=== PATIENT | female | born 1930 | race Caucasian/White ===

== ENCOUNTER 2020-09-08 22:10 | Inpatient (IN) | payer MEDICARE ==
[~2020-09-08] VITALS: Ht 165.1 cm; Wt 88.9 kg
[2020-09-08 22:50] LABS: CLARITY,URINE CLOUDY (CLEAR); COLOR,URINE YELLOW (YELLOW); LEUKOCYTE ESTERASE ,URINE TRACE (NEGATIVE); NITRITE,URINE NEGATIVE (NEGATIVE)
[2020-09-08 22:51] LABS: KETONES,URINE NEGATIVE (NEGATIVE); PROTEIN,URINE DIPSTICK TRACE (NEGATIVE); URINE UROBILINOGEN 0.2 mg/dL (0.2 - 1)
[2020-09-08] MEDS ORDERED: SODIUM CHLORIDE 0.9% 1000ML 1,000 ML IV ONE (23:00)
[2020-09-08] MEDS ORDERED: CEFTRIAXONE 1 GM VIAL IM ONE (23:00)
[2020-09-08 23:04] LABS: BASOPHILS % 0.4 % (0.0-1.0); EOSINOPHILS % 0.2 % (0.0-6.0); HEMATOCRIT 29.7 % (34.2-44.1); HEMOGLOBIN 9.5 g/dL (12.0-16.0); LYMPHOCYTES # (AUTO) 2.3 (1.0-3.2); LYMPHOCYTES % 21.9 % (18.0-39.1); MEAN CORPUSCULAR HEMOGLOBIN 30.9 pg (28-32); MEAN CORPUSCULAR VOLUME 96.7 fL (81-99); MONOCYTES # (AUTO) 0.9 (0.2-0.8); MONOCYTES % 8.2 % (4.4-11.3); NEUTROPHILS # (AUTO) 7.4 (2.1-6.9); NEUTROPHILS % 68.8 % (38.7-80.0); PLATELET COUNT 527 x10e3/uL (140-360); RED BLOOD COUNT 3.07 x10e6/uL (3.6-5.1); RED CELL DISTRIBUTION WIDTH 14.3 % (11.7-14.4)
[2020-09-08 23:09] LABS: EPITHELIAL CELLS,URINE FEW /LPF; RBC,URINE >50 /HPF (0-5); TRANSITIONAL EPI CELLS,URINE FEW; WBC,URINE (MAN) 21-50 /HPF (0-5)
[2020-09-08 23:10] LABS: BACTERIA,URINE MANY /HPF
[2020-09-08] MEDS ORDERED: SODIUM CHLORIDE 0.9% 50ML 50 ML ONE (23:10)
[2020-09-08 23:25] LABS: ALBUMIN 3.1 g/dL (3.5-5.0); ALBUMIN/GLOBULIN RATIO 0.9 (0.8-2.0); ANION GAP 15.2 mmol/L (8-16); CALCIUM 8.2 mg/dL (8.4-10.2); CREATININE, SERUM 1.98 mg/dL (0.57-1.11); POTASSIUM 4.2 mmol/L (3.5-5.1)
[2020-09-09] VITALS (16 sets, daily range): BP systolic 89–128; BP diastolic 34–87
[2020-09-09] MEDS ORDERED: SODIUM CHLORIDE 0.9% 1000ML 1,000 ML IV ONE
[2020-09-09] MEDS ORDERED: ELIQUIS2.5 MG PO (01:39)
[2020-09-09] MEDS ORDERED: LEVETIRACETAM500 MG PO (01:39)
[2020-09-09] MEDS ORDERED: TYLENOL325 MG PO ×2 (01:39→01:45)
[2020-09-09] MEDS ORDERED: FUROSEMIDE20 MG PO (01:39)
[2020-09-09] MEDS ORDERED: VIMPAT50 MG PO (01:39)
[2020-09-09] MEDS ORDERED: SENNA LAX8.6 MG PO (01:39)
[2020-09-09] MEDS ORDERED: NIFEDIPINE ER30 M1 PO (01:39)
[2020-09-09] MEDS ORDERED: MIRALAX17 GM PO (01:39)
[2020-09-09] MEDS ORDERED: SIMVASTATIN20 MG PO (01:45)
[2020-09-09] MEDS ORDERED: OMEPRAZOLE40 MG PO (01:45)
[2020-09-09] MEDS ORDERED: [UNRECOGNIZED DRUG - OTHER] PO (01:45)
[2020-09-09] MEDS ORDERED: ASPIRIN81 MG PO (01:45)
[2020-09-09] MEDS ORDERED: WEEKLY-D1250 MCG PO (01:45)
[2020-09-09] MEDS ORDERED: LOSARTAN POTAS100 MG PO (01:45)
[2020-09-09] MEDS ORDERED: TRICOR145 MG PO (01:45)
[2020-09-09] MEDS ORDERED: SODIUM CHLORIDE 0.9% 1000ML 1,000 ML IV SCH (02:30)
[2020-09-09] MEDS ORDERED: FENTANYL CITRATE/PF 100MCG/2 ML INJ IV ONE (02:45)
[2020-09-09 03:47] LABS: BASOPHILS % 0.2 % (0.0-1.0); EOSINOPHILS % 0.2 % (0.0-6.0); HEMATOCRIT 25.6 % (34.2-44.1); HEMOGLOBIN 8.1 g/dL (12.0-16.0); LYMPHOCYTES % 23.6 % (18.0-39.1); MEAN CORPUSCULAR HEMOGLOBIN 30.9 pg (28-32); MEAN CORPUSCULAR HGB CONC 31.6 g/dL (31-35); MEAN CORPUSCULAR VOLUME 97.7 fL (81-99); MONOCYTES # (AUTO) 0.7 (0.2-0.8); MONOCYTES % 8.5 % (4.4-11.3); NEUTROPHILS # (AUTO) 5.6 (2.1-6.9); RED BLOOD COUNT 2.62 x10e6/uL (3.6-5.1); RED CELL DISTRIBUTION WIDTH 14.4 % (11.7-14.4)
[2020-09-09 03:48] LABS: PLATELET COUNT 440 x10e3/uL (140-360)
[2020-09-09 03:58] LABS: MAGNESIUM 1.7 MG/DL (1.3-2.1); PHOSPHORUS 3.7 MG/DL (2.3-4.7)
[2020-09-09 04:04] LABS: ALBUMIN 2.5 g/dL (3.5-5.0); ALBUMIN/GLOBULIN RATIO 0.9 (0.8-2.0); ANION GAP 12.9 mmol/L (8-16); CALCIUM 7.2 mg/dL (8.4-10.2); CREATININE, SERUM 1.61 mg/dL (0.57-1.11); POTASSIUM 3.9 mmol/L (3.5-5.1)
[2020-09-09] MEDS ORDERED: PIPERACILLIN/TAZOBACTAM 3.375 GM in SODIUM CHLORIDE 0.9% 50ML 50 ML IV SCH (08:45)
[2020-09-09] MEDS ORDERED: CEFTRIAXONE 1 GM in SODIUM CHLORIDE 0.9% 50ML 50 ML IV SCH (09:00)
[2020-09-09] MEDS: LACTATED RINGER'S 1,000 ML INJ SCH (12:36)
[2020-09-09] MEDS: Pantoprazole IV 40 MG in SODIUM CHLORIDE 0.9% 50ML 50 ML IV SCH ×3 (12:43→21:19)
[2020-09-09] MEDS ORDERED: Vancomycin IV 1 GM in SODIUM CHLORIDE 0.9% 250ML 250 ML IV ONE (14:45)
[2020-09-09] MEDS: LEVETIRACETAM 500MG/5ML VIAL 1,000 MG in SODIUM CHLORIDE 0.9% 100 ML 100 ML IV SCH (14:48)
[2020-09-09] MEDS ORDERED: LEVETIRACETAM 500 MG TAB PO SCH (17:00)
[2020-09-09] MEDS: PIPERACILLIN/TAZOBACTAM 3.375 GM in SODIUM CHLORIDE 0.9% 50ML 50 ML IV SCH (18:47)
[2020-09-09] MEDS ORDERED: SIMVASTATIN 20 MG TAB PO SCH (21:00)
[2020-09-10] VITALS (21 sets, daily range): BP systolic 91–145; BP diastolic 38–98
[2020-09-10 00:57] LABS: FERRITIN 97.93 ng/mL (4.63-204.00)
[2020-09-10] MEDS: LACTATED RINGER'S 1,000 ML INJ SCH ×3 (01:48→12:34)
[2020-09-10] MEDS: Pantoprazole IV 40 MG in SODIUM CHLORIDE 0.9% 50ML 50 ML IV SCH ×5 (02:19→20:43)
[2020-09-10] MEDS: LEVETIRACETAM 500MG/5ML VIAL 1,000 MG in SODIUM CHLORIDE 0.9% 100 ML 100 ML IV SCH ×2 (02:19→12:34)
[2020-09-10] MEDS: PIPERACILLIN/TAZOBACTAM 3.375 GM in SODIUM CHLORIDE 0.9% 50ML 50 ML IV SCH ×3 (02:50→17:02)
[2020-09-10 05:25] LABS: BASOPHILS % 0.7 % (0.0-1.0); EOSINOPHILS # (AUTO) 0.2 (0.0-0.4); EOSINOPHILS % 3.6 % (0.0-6.0); HEMOGLOBIN 7.1 g/dL (12.0-16.0); LYMPHOCYTES # (AUTO) 1.7 (1.0-3.2); LYMPHOCYTES % 31.6 % (18.0-39.1); MEAN CORPUSCULAR HEMOGLOBIN 30.6 pg (28-32); MEAN CORPUSCULAR VOLUME 98.7 fL (81-99); MONOCYTES # (AUTO) 0.5 (0.2-0.8); MONOCYTES % 8.2 % (4.4-11.3); NEUTROPHILS # (AUTO) 3.1 (2.1-6.9); NEUTROPHILS % 55.7 % (38.7-80.0); PLATELET COUNT 389 x10e3/uL (140-360); RED BLOOD COUNT 2.32 x10e6/uL (3.6-5.1); RED CELL DISTRIBUTION WIDTH 14.5 % (11.7-14.4)
[2020-09-10 05:31] LABS: INR 1.22; PROTHROMBIN TIME 16.1 seconds (11.9-14.5)
[2020-09-10 05:32] LABS: PARTIAL THROMBOPLASTIN TIME 35.3 seconds (23.8-35.5)
[2020-09-10 05:33] LABS: HEMATOCRIT 22.9 % (34.2-44.1)
[2020-09-10 05:53] LABS: ALBUMIN 2.1 g/dL (3.5-5.0); ALBUMIN/GLOBULIN RATIO 0.8 (0.8-2.0); ANION GAP 9.7 mmol/L (8-16); CALCIUM 7.7 mg/dL (8.4-10.2); CREATININE, SERUM 1.3 mg/dL (0.57-1.11); POTASSIUM 3.7 mmol/L (3.5-5.1)
[2020-09-10] MEDS: IRON SUCROSE 100 MG in SODIUM CHLORIDE 0.9% 100 ML 100 ML IV SCH (08:38)
[2020-09-10] MEDS ORDERED: ASPIRIN 81 MG CHEW TAB PO SCH (09:00)
[2020-09-10] MEDS ORDERED: ACETAMINOPHEN 325 MG TAB PO PRN (16:15)
[2020-09-10] MEDS: LACOSAMIDE 50 MG TABLET PO SCH (17:36)
[2020-09-10] MEDS: SIMVASTATIN 20 MG TAB PO SCH (20:43)
[2020-09-11] VITALS (17 sets, daily range): BP systolic 101–157; BP diastolic 47–80
[2020-09-11] MEDS: LACTATED RINGER'S 1,000 ML INJ SCH ×2 (00:45→02:06)
[2020-09-11] MEDS: LEVETIRACETAM 500 MG TAB PO SCH ×2 (01:01→12:00)
[2020-09-11] MEDS: Pantoprazole IV 40 MG in SODIUM CHLORIDE 0.9% 50ML 50 ML IV SCH ×5 (02:00→21:33)
[2020-09-11] MEDS: PIPERACILLIN/TAZOBACTAM 3.375 GM in SODIUM CHLORIDE 0.9% 50ML 50 ML IV SCH ×3 (02:06→17:06)
[2020-09-11 05:28] LABS: BASOPHILS % 0.5 % (0.0-1.0); EOSINOPHILS # (AUTO) 0.2 (0.0-0.4); EOSINOPHILS % 4.3 % (0.0-6.0); HEMOGLOBIN 7.1 g/dL (12.0-16.0); LYMPHOCYTES # (AUTO) 1.1 (1.0-3.2); LYMPHOCYTES % 25.2 % (18.0-39.1); MEAN CORPUSCULAR HEMOGLOBIN 31.1 pg (28-32); MEAN CORPUSCULAR HGB CONC 31.3 g/dL (31-35); MEAN CORPUSCULAR VOLUME 99.6 fL (81-99); MONOCYTES # (AUTO) 0.4 (0.2-0.8); MONOCYTES % 8.6 % (4.4-11.3); NEUTROPHILS # (AUTO) 2.7 (2.1-6.9); NEUTROPHILS % 60.9 % (38.7-80.0); PLATELET COUNT 367 x10e3/uL (140-360); RED BLOOD COUNT 2.28 x10e6/uL (3.6-5.1); RED CELL DISTRIBUTION WIDTH 14.3 % (11.7-14.4)
[2020-09-11 05:52] LABS: HEMATOCRIT 22.7 % (34.2-44.1)
[2020-09-11 06:01] LABS: ANION GAP 10.8 mmol/L (8-16); CALCIUM 7.4 mg/dL (8.4-10.2); CREATININE, SERUM 1.25 mg/dL (0.57-1.11); POTASSIUM 3.8 mmol/L (3.5-5.1)
[2020-09-11] MEDS: LACOSAMIDE 50 MG TABLET PO SCH ×2 (08:02→17:06)
[2020-09-11] MEDS: BALSAM PERU/CASTOR OIL 60 GM OINT...G. TP SCH (08:06)
[2020-09-11] MEDS: IRON SUCROSE 100 MG in SODIUM CHLORIDE 0.9% 100 ML 100 ML IV SCH (09:31)
[2020-09-11] MEDS: SUCRALFATE 1 GM/10 ML SUSP PO SCH ×2 (17:06→21:11)
[2020-09-11] MEDS ORDERED: CARVEDILOL 3.125 MG TAB PO SCH (18:00)
[2020-09-11] MEDS: CARVEDILOL 3.125 MG TAB PO SCH (19:00)
[2020-09-11] MEDS: SIMVASTATIN 20 MG TAB PO SCH (21:11)
[2020-09-12] VITALS (11 sets, daily range): BP systolic 111–131; BP diastolic 46–100
[2020-09-12] MEDS: LEVETIRACETAM 500 MG TAB PO SCH ×3 (00:30→23:30)
[2020-09-12] MEDS: Pantoprazole IV 40 MG in SODIUM CHLORIDE 0.9% 50ML 50 ML IV SCH ×5 (01:06→21:13)
[2020-09-12 05:47] LABS: BASOPHILS % 0.4 % (0.0-1.0); EOSINOPHILS # (AUTO) 0.3 (0.0-0.4); EOSINOPHILS % 3.9 % (0.0-6.0); HEMATOCRIT 24.6 % (34.2-44.1); HEMOGLOBIN 7.8 g/dL (12.0-16.0); LYMPHOCYTES # (AUTO) 1.9 (1.0-3.2); LYMPHOCYTES % 28.2 % (18.0-39.1); MEAN CORPUSCULAR HEMOGLOBIN 31.5 pg (28-32); MEAN CORPUSCULAR HGB CONC 31.7 g/dL (31-35); MEAN CORPUSCULAR VOLUME 99.2 fL (81-99); MONOCYTES # (AUTO) 0.7 (0.2-0.8); MONOCYTES % 10.4 % (4.4-11.3); NEUTROPHILS # (AUTO) 3.8 (2.1-6.9); NEUTROPHILS % 56.7 % (38.7-80.0); PLATELET COUNT 374 x10e3/uL (140-360); RED BLOOD COUNT 2.48 x10e6/uL (3.6-5.1); RED CELL DISTRIBUTION WIDTH 14.2 % (11.7-14.4)
[2020-09-12 06:18] LABS: ANION GAP 12.7 mmol/L (8-16); CREATININE, SERUM 1.16 mg/dL (0.57-1.11); POTASSIUM 3.7 mmol/L (3.5-5.1)
[2020-09-12 06:19] LABS: CALCIUM 7.7 mg/dL (8.4-10.2)
[2020-09-12] MEDS: CARVEDILOL 3.125 MG TAB PO SCH ×2 (08:47→17:21)
[2020-09-12] MEDS: IRON SUCROSE 100 MG in SODIUM CHLORIDE 0.9% 100 ML 100 ML IV SCH (08:47)
[2020-09-12] MEDS: SUCRALFATE 1 GM/10 ML SUSP PO SCH ×4 (08:48→21:45)
[2020-09-12] MEDS: LACOSAMIDE 50 MG TABLET PO SCH ×2 (08:48→17:21)
[2020-09-12] MEDS: BALSAM PERU/CASTOR OIL 60 GM OINT...G. TP SCH (10:52)
[2020-09-12] MEDS ORDERED: PROPOFOL IV EMULSION 10 MG/ML 20 ML VIAL ONE (13:31)
[2020-09-12] MEDS: SIMVASTATIN 20 MG TAB PO SCH (21:03)
[2020-09-13] VITALS: BP 137/65
[2020-09-13] MEDS: Pantoprazole IV 40 MG in SODIUM CHLORIDE 0.9% 50ML 50 ML IV SCH ×3 (03:15→13:15)
[2020-09-13 04:00] VITALS: BP 103/49
[2020-09-13 06:08] LABS: BASOPHILS % 0.3 % (0.0-1.0); EOSINOPHILS # (AUTO) 0.3 (0.0-0.4); EOSINOPHILS % 4.4 % (0.0-6.0); HEMATOCRIT 24.4 % (34.2-44.1); HEMOGLOBIN 7.4 g/dL (12.0-16.0); LYMPHOCYTES # (AUTO) 1.8 (1.0-3.2); LYMPHOCYTES % 26.5 % (18.0-39.1); MEAN CORPUSCULAR HEMOGLOBIN 30.3 pg (28-32); MEAN CORPUSCULAR HGB CONC 30.3 g/dL (31-35); MONOCYTES # (AUTO) 0.7 (0.2-0.8); MONOCYTES % 10.8 % (4.4-11.3); NEUTROPHILS % 57.7 % (38.7-80.0); PLATELET COUNT 360 x10e3/uL (140-360); RED BLOOD COUNT 2.44 x10e6/uL (3.6-5.1); RED CELL DISTRIBUTION WIDTH 14.3 % (11.7-14.4)
[2020-09-13 06:30] LABS: ANION GAP 12.7 mmol/L (8-16); CALCIUM 7.6 mg/dL (8.4-10.2); CREATININE, SERUM 1.16 mg/dL (0.57-1.11); POTASSIUM 3.7 mmol/L (3.5-5.1)
[2020-09-13] MEDS: SUCRALFATE 1 GM/10 ML SUSP PO SCH ×3 (08:16→17:04)
[2020-09-13] MEDS: BALSAM PERU/CASTOR OIL 60 GM OINT...G. TP SCH (08:16)
[2020-09-13] MEDS: CARVEDILOL 3.125 MG TAB PO SCH ×2 (08:16→17:04)
[2020-09-13] MEDS: LACOSAMIDE 50 MG TABLET PO SCH ×2 (08:16→17:04)
[2020-09-13] MEDS: IRON SUCROSE 100 MG in SODIUM CHLORIDE 0.9% 100 ML 100 ML IV SCH (08:20)
[2020-09-13 08:23] VITALS: BP 124/49
[2020-09-13 08:24] VITALS: BP 124/49
[2020-09-13] MEDS: LEVETIRACETAM 500 MG TAB PO SCH (11:45)
[2020-09-13 12:03] VITALS: BP 121/49
[2020-09-13] MEDS ORDERED: VIMPAT50 MG PO (15:11)
[2020-09-13] MEDS ORDERED: SIMVASTATIN20 MG PO (15:11)
[2020-09-13] MEDS ORDERED: COREG3.125 MG PO (15:11)
[2020-09-13] MEDS ORDERED: SUCRALFATE1 G/10 ML PO (15:11)
[2020-09-13] MEDS ORDERED: KEPPRA500 MG PO (15:11)
[2020-09-13 17:14] VITALS: BP 148/66
== END 2020-09-13 18:39 | disposition home or self-care (01) | DRG 871 ==
LOC: ER 22:15 → ERHOLD 09-09 02:32 → ICU 09-09 08:11 → IMCU 09-11 18:41
PROVIDERS: ADMIT Internal Medicine; ATTEND Internal Medicine
PROC: 02HV33Z Insertion of Infusion Device into Superior Vena Cava, Percutaneous Approach (ICD-10-PCS; principal; 2020-09-09)
PROC: 0DB98ZX Excision of Duodenum, Via Natural or Artificial Opening Endoscopic, Diagnostic (ICD-10-PCS; 2020-09-11)
PROC: 0DB68ZX Excision of Stomach, Via Natural or Artificial Opening Endoscopic, Diagnostic (ICD-10-PCS; 2020-09-11)
DX: A41.9 Sepsis, unspecified organism (principal); K26.0 Acute duodenal ulcer with hemorrhage; K29.71 Gastritis, unspecified, with bleeding; N39.0 Urinary tract infection, site not specified; D62 Acute posthemorrhagic anemia; R57.9 Shock, unspecified; I69.320 Aphasia following cerebral infarction; K21.9 Gastro-esophageal reflux disease without esophagitis; Z90.49 Acquired absence of other specified parts of digestive tract; Z95.1 Presence of aortocoronary bypass graft; Z95.810 Presence of automatic (implantable) cardiac defibrillator; Z96.651 Presence of right artificial knee joint; G40.909 Epilepsy, unspecified, not intractable, without status epilepticus; E11.22 Type 2 diabetes mellitus with diabetic chronic kidney disease; I12.9 Hypertensive chronic kidney disease with stage 1 through stage 4 chronic kidney disease, or unspecified chronic kidney disease; N18.30 Chronic kidney disease, stage 3 unspecified; K20.90 Esophagitis, unspecified without bleeding; K44.9 Diaphragmatic hernia without obstruction or gangrene; K31.7 Polyp of stomach and duodenum
CPT/HCPCS: 36415; 43239; 51700; 71045; 74176; 80048; 80053; 81001; 82270; 82542; 82607; 82728; 82746; 82948; 83036; 83540; 83735; 84100; 84466; 85025; 85045; 85610; 85730; 87086; 87186; 88305; 88312; 93005; 97139; 99251; 99285; J0696; J1756; J2543; J3010; J3370; J7030; J7050; J7121; U0002